=== PATIENT | male | born 1970 | race Caucasian/White ===

== ENCOUNTER 2021-02-26 14:10 | Emergency (ER) | payer MEDICARE, OTHER ==
[~2021-02-26] VITALS: Ht 172.7 cm; Wt 99.8 kg
[~2021-02-26 14:10] MED LIST: BENAZEPRIL-HCT1 EAC1 PO; FLECTOR1 EA TP; FLEXERIL PO; LOPID600 MG; MULTIVITAMINS; NORCO 5-325 TA1 EAC1 PO; PEPCID40 MG PO; PERCOCET 5-3251 EACH PO; PREDNISONE 10 M10 MG PO; SIMVASTATIN40 MG; STOOL SOFTENER240 MG PO; SYNTHROID88 MCG
[2021-02-26 14:46] LABS: ABSOLUTE BASOPHILS 0.1 thou/uL (0.0-0.2); ABSOLUTE EOSINOPHILS 0.2 thou/uL (0.0-0.7); ABSOLUTE LYMPHOCYTES 1.7 thou/uL (0.8-5.3); ABSOLUTE MONOCYTES 0.6 thou/uL (0.0-1.2); ABSOLUTE NEUTROPHILS 7.4 thou/uL (1.6-8.1); BASOPHILS 0.9 %; EOSINOPHILS 1.7 %; HEMATOCRIT 45.3 % (42.0-52.0); HEMOGLOBIN 15.2 gm/dL (14.0-18.0); LYMPHOCYTES 16.8 %; MCH 28.2 pg (26.0-34.0); MCHC 33.6 g/dL (28.0-37.0); MCV 83.9 fL (80.0-100.0); MONOCYTES 6.4 %; MPV 7.4 fl. (7.2-11.1); NUCLEATED RBCS 0 /100WBC; PLATELET COUNT* 251 thou/uL (150-400); POLYS 74.2 %; RBC 5.39 mil/uL (4.50-6.00); RDW-CV 14.3 % (10.5-14.5)
[2021-02-26 14:54] LABS: APTT 24.8 Seconds (25.0-31.3); PROTIME 10.7 Seconds (9.20-11.50)
[2021-02-26 14:58] LABS: ALBUMIN 3.7 g/dL (3.4-5.0); CALCIUM 9.2 mg/dL (8.5-10.1); CREATININE 0.9 mg/dL (0.6-1.3); POTASSIUM 4.3 mmol/L (3.5-5.1); TOTAL BILIRUBIN 1.3 mg/dL (<0.1-1.0)
[2021-02-26 15:20] VITALS: BP 164/85
--- NOTE | 2021-02-26 15:51 | EKG ---
[place] [address] ELECTROCARDIOGRAM REPORT Name: KISHA WILLSON Room: [facility]#: [id number] Admission: 02/26/21 Attend Phys: Discharge: 02/26/21 Date of : 66 Date of Service: 02/26/21 1435 Report #: [id number] THIS REPORT FOR: //name// [facility] ED Test Date: 2021-02-26 Test Time: 14:35:49 Pat Name: KISHA WILLSON Department: Room: Gender: Crnp: [facility] : 1970 Requested By: Romeo Torres Order Number: [id number] MD: Paulino Aldridge Measurements Intervals [place] Rate: 70 P: 65 MN: 177 QRS: 68 QRSD: 100 T: 107 QT: 368 QTc: 398 Interpretive Statements Sinus rhythm RSR' in V1 or V2, right VCD or RVH Nonspecific T abnormalities, lateral leads No previous ECG available for comparison Electronically Signed On 02-26-2021 15:51:35 CDT by Paulino Aldridge [email or web address] <ELECTRONICALLY SIGNED> By: Paulino Aldridge MD, [facility] 02/26/21 1551 1435 1435 Paulino Aldridge MD, [facility] /EPI
== END 2021-02-26 15:20 | disposition home or self-care (01) ==
LOC: M.ERS 14:10
PROVIDERS: Family Medicine
DX: R55 Syncope and collapse (principal); R06.02 Shortness of breath; I10 Essential (primary) hypertension; E78.00 Pure hypercholesterolemia, unspecified; E03.9 Hypothyroidism, unspecified; Z98.890 Other specified postprocedural states; Z79.899 Other long term (current) drug therapy; Z88.5 Allergy status to narcotic agent